=== PATIENT | male | born 1985 | race Two or more races ===

== ENCOUNTER 2017-03-06 19:40 | Emergency (ER) | payer SELFPAY ==
[2017-03-06] MEDS ORDERED: OXYCODONE-ACETAMINOPHEN 5-325 MG TABLET PO ONE (21:22)
[2017-03-06] MEDS ORDERED: PROMETHAZINE HCL 25 MG TABLET PO ONE (21:22)
--- NOTE | 2017-03-06 21:39 | ER Document Report ---
ED Medical Screen (RME) - General Chief Complaint: Epigastric Pain Stated Complaint: ABDOMINAL PAIN Time Seen by Provider: 03/06/17 21:19 Notes: 31-year-old male that comes emergency department for chief complaint of pain in his upper abdomen since 7 PM, pain is very sharp, mainly in the right abdomen and radiates around to his right back. He reports nausea, denies vomiting. He denies history of the same. He denies any daily medications. Only past medical history is laparoscopic procedure for a benign tumor removal according to the patient. TRAVEL OUTSIDE OF THE [place] IN LAST 30 DAYS: No - Related Data Allergies/Adverse Reactions: No Known Allergies Allergy (Verified 03/06/17 20:45) Past Medical History Renal/ Medical History: Denies: Hx Peritoneal Dialysis Past Surgical History: Reports: Hx Orthopedic Surgery - ACL surgery; - Immunizations Hx Diphtheria, Pertussis, Tetanus Vaccination: Yes Physical Exam - Vital signs Vitals: Temp Pulse Resp BP Pulse Ox 98.0 F 82 18 161/94 H 99 03/06/17 20:45 03/06/17 20:45 03/06/17 20:45 03/06/17 20:45 03/06/17 20:45 - General General appearance: Anxious In distress: Moderate - Patient is obviously in pain - Abdominal Tenderness: Tender - Tender in the right upper quadrant and epigastric area only , otherwise very benign abdomen, Boston's sign - Positive Boston sign Course - Vital Signs Vital signs: Temp Pulse Resp BP Pulse Ox 98.0 F 82 18 161/94 H 99 03/06/17 20:45 03/06/17 20:45 03/06/17 20:45 03/06/17 20:45 03/06/17 20:45
[2017-03-06 21:55] LABS: ABSOLUTE BASOPHILS # (AUTO) 0.1 10^3/uL (0.0-0.2); ABSOLUTE EOSINOPHILS # (AUTO) 0.2 10^3/uL (0.0-0.6); ABSOLUTE LYMPHOCYTES (AUTO) 2.2 10^3/uL (0.5-4.7); ABSOLUTE MONOCYTES (AUTO) 0.5 10^3/uL (0.1-1.4); ABSOLUTE NEUT (AUTO) 6.5 10^3/uL (1.7-8.2); BASOPHILS % (AUTO) 0.7 % (0-2); EOSINOPHILS % (AUTO) 2.6 % (0-6); HEMATOCRIT 50.2 % (37.9-51.0); HEMOGLOBIN 16.5 g/dL (13.5-17.0); HGB HCT DIFFERENCE -0.7; LYMPHOCYTES % (AUTO) 23.2 % (13-45); MEAN CORPUSCULAR HEMOGLOBIN 30.9 pg (27.0-33.4); MEAN CORPUSCULAR HGB CONC 32.9 g/dL (32.0-36.0); MEAN CORPUSCULAR VOLUME 94 fl (80-97); MONOCYTES % (AUTO) 5.4 % (3-13); RED BLOOD COUNT 5.35 10^6/uL (4.35-5.55); RED CELL DISTRIBUTION WIDTH 13.5 % (11.5-14.0); SEGMENTED NEUTROPHILS % (AUTO) 68.1 % (42-78); WHITE BLOOD COUNT 9.5 10^3/uL (4.0-10.5)
[2017-03-06 22:05] LABS: APPEARANCE,URINE CLEAR; BILIRUBIN,URINE NEGATIVE (NEGATIVE); GLUCOSE, URINE NEGATIVE (NEGATIVE); KETONES,URINE NEGATIVE (NEGATIVE); LEUKOCYTE ESTERASE,URINE SMALL (NEGATIVE); NITRITE,URINE NEGATIVE (NEGATIVE); PROTEIN,URINE NEGATIVE (NEGATIVE); URINE SPECIFIC GRAVITY 1.009; UROBILINOGEN,URINE NEGATIVE mg/dL (<2.0)
[2017-03-06 22:13] LABS: ALANINE AMINOTRANSFERASE 60 U/L (21-72); ALBUMIN 4.7 g/dL (3.5-5.0); ALKALINE PHOSPHATASE 96 U/L (38-126); ANION GAP 11 (5-19); ASPARTATE AMINO TRANSFERASE 44 U/L (17-59); BILIRUBIN,DIRECT 0.4 mg/dL (0.0-0.4); BILIRUBIN,TOTAL 0.5 mg/dL (0.2-1.3); BLOOD UREA NITROGEN 16 mg/dL (7-20); CARBON DIOXIDE 26 mmol/L (22-30); CHLORIDE 100 mmol/L (98-107); CREATININE RESULT 0.83 mg/dL (0.52-1.25); GLUCOSE 118 mg/dL (75-110); LIPASE 345.2 U/L (23-300); POTASSIUM 4.1 mmol/L (3.6-5.0); SODIUM 137.4 mmol/L (137-145); TOTAL PROTEIN 7.5 g/dL (6.3-8.2)
[2017-03-07] MEDS ORDERED: HYDROCODONE/ACETAMINOPHEN 5-325 MG 6 TAB/DSPK PO PRN (00:45)
--- NOTE | 2017-03-07 00:48 | ER Document Report ---
ED GI/ - General Chief Complaint: Epigastric Pain Stated Complaint: ABDOMINAL PAIN Time Seen by Provider: 03/06/17 21:19 Mode of Arrival: Ambulatory Information source: Patient TRAVEL OUTSIDE OF THE [place] IN LAST 30 DAYS: No - HPI Patient complains to provider of: Abdominal pain Timing/Duration: Sudden Quality of pain: Sharp, Stabbing Severity at maximum: Moderate Severity in ED: Almost gone Location: Epigastric, RUQ Associated symptoms: Nausea Exacerbated by: Denies Relieved by: Denies Similar symptoms previously: Yes Recently seen / treated by doctor: No Notes: 03/07/17 02:41 Patient is a 31-year-old male who presents to the emergency room complaining of upper abdominal pain with nausea that started earlier today, he had similar pain a couple days ago and sometime last year, which he did not seek out medical care for, he denies any fever, no vomiting or diarrhea, he is a every other day drinker, 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, no other surgeries - Related Data Allergies/Adverse Reactions: No Known Allergies Allergy (Verified 03/06/17 20:45) Past Medical History - General Information source: Patient - Social History Smoking Status: Never Smoker Frequency of alcohol use: Every other day Family History: Reviewed & Not Pertinent Patient has suicidal ideation: No Patient has homicidal ideation: No Renal/ Medical History: Denies: Hx Peritoneal Dialysis Past Surgical History: Reports: Hx Orthopedic Surgery - ACL surgery; - Immunizations Hx Diphtheria, Pertussis, Tetanus Vaccination: Yes Review of Systems - Review of Systems Constitutional: No symptoms reported EENT: No symptoms reported Cardiovascular: No symptoms reported Respiratory: No symptoms reported Gastrointestinal: See HPI Genitourinary: No symptoms reported Male Genitourinary: No symptoms reported Musculoskeletal: No symptoms reported Skin: No symptoms reported Hematologic/Lymphatic: No symptoms reported Neurological/Psychological: No symptoms reported -: Yes All other systems reviewed and negative Physical Exam - Vital signs Vitals: Temp Pulse Resp BP Pulse Ox 98.0 F 82 18 161/94 H 99 03/06/17 20:45 03/06/17 20:45 03/06/17 20:45 03/06/17 20:45 03/06/17 20:45 Interpretation: Normal - General General appearance: Appears well, Alert - HEENT Head: Normocephalic, Atraumatic Eyes: Normal Pupils: PERRL - Respiratory Respiratory status: No respiratory distress Chest status: Nontender Breath sounds: Normal Chest palpation: Normal - Cardiovascular Rhythm: Regular Heart sounds: Normal auscultation Murmur: No - Abdominal Inspection: Normal Distension: No distension Bowel sounds: Normal Tenderness: Nontender Organomegaly: No organomegaly - Back Back: Normal, Nontender - Extremities General upper extremity: Normal inspection, Nontender, Normal color, Normal ROM , Normal temperature General lower extremity: Normal inspection, Nontender, Normal color, Normal ROM , Normal temperature, Normal weight bearing. No: Shaniqua's sign - Neurological Neuro grossly intact: Yes Cognition: Normal Orientation: AAOx4 [place] Coma Scale Eye Opening: Spontaneous Hector Coma Scale Verbal: Oriented [place] Coma Scale Motor: Obeys Commands [place] Coma Scale Total: 15 Speech: Normal Motor strength normal: LUE, RUE, LLE, RLE Sensory: Normal - Psychological Associated symptoms: Normal affect, Normal mood - Skin Skin Temperature: Warm Skin Moisture: Dry Skin Color: Normal Course - Re-evaluation Re-evalutation: 03/07/17 02:42 Physical exam findings unremarkable, patient reports his pain is resolved at time of my evaluation, lab and imaging findings were discussed with patient at bedside, lab findings are unremarkable, ultrasound shows evidence of gallstones and sludge, patient was provided with pain medication, dietary counseling was provided as well as information for follow-up with surgery, he was advised to follow-up in the next 2-3 days for reevaluation or return if symptoms worsen, patient acknowledges understanding and agreement with this plan - Vital Signs Vital signs: Temp Pulse Resp BP Pulse Ox 98.7 F 78 16 145/99 H 99 03/07/17 01:05 03/07/17 01:05 03/07/17 01:05 03/07/17 01:05 03/07/17 01:05 - Laboratory Result Diagrams: 03/06/17 21:35 03/06/17 21:35 Laboratory results interpreted by me: 03/06/17 03/06/17 21:35 21:35 Glucose 118 H Lipase 345.2 H Urine Blood SMALL H Ur Leukocyte Esterase SMALL H - Diagnostic Test Radiology reviewed: Image reviewed, Reports reviewed Discharge - Discharge Clinical Impression: Abdominal pain Qualifiers: Abdominal location: right upper quadrant Qualified Code(s): R10.11 - Right upper quadrant pain Gallstone Qualifiers: Cholecystitis presence: without cholecystitis Biliary obstruction: without biliary obstruction Qualified Code(s): K80.20 - Calculus of gallbladder without cholecystitis without obstruction Condition: Stable Disposition: HOME, SELF-CARE Instructions: Abdominal Pain ([facility]), Gallbladder Disease ([facility]), Oral Narcotic Medication ([facility]), Low-Fat Diet ([facility]) Additional Instructions: Follow up with your primary care provider and a surgeon in one to 2 days. Return to the emergency room immediately if symptoms worsen or any additional concerns. Prescriptions: Hydrocodone/Acetaminophen [Hydrocodon-Acetaminophen 5-325] 1 each PO Q6 #20 tablet
--- NOTE | 2017-03-07 00:55 | RADIOLOGY REPORT (SQ) ---
EXAM DESCRIPTION: U/S ABDOMEN LIMITED W/O DOP COMPLETED DATE/TIME: 03/07/2017 12:29 am REASON FOR STUDY: RUQ and epigastric pain, nausea COMPARISON: None. TECHNIQUE: Dynamic and static grayscale images acquired of the abdomen and recorded on PACS. Additio nal selected color Doppler and spectral images recorded. LIMITATIONS: None. FINDINGS: PANCREAS: No masses. Visualized pancreatic duct normal caliber. LIVER: No masses. Echotexture normal. LIVER VASCULATURE: Normal directional flow of the main portal vein and hepatic veins. GALLBLADDER: Gallstones measure up to 2.4 cm. Sludge. ULTRASOUND-DETECTED CARUSO'S SIGN: Negative. INTRAHEPATIC DUCTS AND COMMON DUCT: 0.5 cm diameter CBD and intrahepatic ducts normal caliber. No faith ling defects. INFERIOR VENA CAVA: Normal flow. AORTA: No aneurysm. Limited visualization. RIGHT KIDNEY: Normal size. Normal echogenicity. No solid or suspicious masses. No hydronephrosis. No calcifications. PERITONEAL AND RIGHT PLEURAL SPACE: No ascites or effusions. OTHER: No other significant findings. IMPRESSION: Cholelithiasis. TECHNICAL DOCUMENTATION: JOB ID: [id number] [employer]- All Rights Reserved
[2017-03-07 01:16] VITALS: BP 145/99
== END 2017-03-07 01:05 | disposition home or self-care (01) ==
LOC: EDSEX 19:40 → ER 19:40
DX: K80.20 Calculus of gallbladder without cholecystitis without obstruction (principal); R10.11 Right upper quadrant pain; R10.13 Epigastric pain; R11.0 Nausea
CPT/HCPCS: 36415; 76705; 80053; 81001; 83690; 85025; 99284

== ENCOUNTER 2017-04-01 21:00 | Emergency (ER) | payer SELFPAY ==
[2017-04-01 21:10] VITALS: BP 158/95
== END 2017-04-01 23:50 | disposition left against medical advice (07) ==
LOC: ER 21:00
DX: Z53.9 Procedure and treatment not carried out, unspecified reason (principal); R10.9 Unspecified abdominal pain

== ENCOUNTER 2017-04-02 03:20 | Inpatient (IN) | payer SELFPAY ==
[2017-04-02 06:55] LABS: ABSOLUTE EOSINOPHILS # (AUTO) 0.1 10^3/uL (0.0-0.6); ABSOLUTE MONOCYTES (AUTO) 0.8 10^3/uL (0.1-1.4); ABSOLUTE NEUT (AUTO) 8.8 10^3/uL (1.7-8.2); BASOPHILS % (AUTO) 0.2 % (0-2); EOSINOPHILS % (AUTO) 1.1 % (0-6); HEMATOCRIT 48.3 % (37.9-51.0); HEMOGLOBIN 15.9 g/dL (13.5-17.0); HGB HCT DIFFERENCE -0.6; LYMPHOCYTES % (AUTO) 9.3 % (13-45); MEAN CORPUSCULAR HEMOGLOBIN 30.8 pg (27.0-33.4); MEAN CORPUSCULAR HGB CONC 32.9 g/dL (32.0-36.0); MEAN CORPUSCULAR VOLUME 94 fl (80-97); MONOCYTES % (AUTO) 7.5 % (3-13); RED BLOOD COUNT 5.17 10^6/uL (4.35-5.55); RED CELL DISTRIBUTION WIDTH 13.1 % (11.5-14.0); SEGMENTED NEUTROPHILS % (AUTO) 81.9 % (42-78); WHITE BLOOD COUNT 10.8 10^3/uL (4.0-10.5)
[2017-04-02 07:08] LABS: ALANINE AMINOTRANSFERASE 43 U/L (21-72); ALBUMIN 4.7 g/dL (3.5-5.0); ALKALINE PHOSPHATASE 85 U/L (38-126); ANION GAP 13 (5-19); ASPARTATE AMINO TRANSFERASE 47 U/L (17-59); BILIRUBIN,DIRECT 0.4 mg/dL (0.0-0.4); BILIRUBIN,TOTAL 0.8 mg/dL (0.2-1.3); BLOOD UREA NITROGEN 7 mg/dL (7-20); CALCIUM 9.4 mg/dL (8.4-10.2); CARBON DIOXIDE 27 mmol/L (22-30); CHLORIDE 97 mmol/L (98-107); CREATININE RESULT 0.78 mg/dL (0.52-1.25); GLUCOSE 89 mg/dL (75-110); LIPASE 84.7 U/L (23-300); POTASSIUM 3.7 mmol/L (3.6-5.0); SODIUM 137.1 mmol/L (137-145)
[2017-04-02 07:20] LABS: APPEARANCE,URINE CLEAR; BILIRUBIN,URINE NEGATIVE (NEGATIVE); GLUCOSE, URINE 150 mg/dL (NEGATIVE); KETONES,URINE 20 mg/dL (NEGATIVE); LEUKOCYTE ESTERASE,URINE NEGATIVE (NEGATIVE); NITRITE,URINE NEGATIVE (NEGATIVE); PROTEIN,URINE NEGATIVE (NEGATIVE); URINE SPECIFIC GRAVITY 1.011; UROBILINOGEN,URINE NEGATIVE mg/dL (<2.0)
--- NOTE | 2017-04-02 07:32 | RADIOLOGY REPORT (SQ) ---
EXAM DESCRIPTION: U/S ABDOMEN LIMITED W/O DOP COMPLETED DATE/TIME: 04/02/2017 7:17 am REASON FOR STUDY: RUQ pain COMPARISON: 5..17 TECHNIQUE: Dynamic and static grayscale images acquired of the abdomen and recorded on PACS. Additio nal selected color Doppler and spectral images recorded. LIMITATIONS: None. FINDINGS: PANCREAS: No masses. Visualized pancreatic duct normal caliber. LIVER: No masses. Mild hepatic steatosis. LIVER VASCULATURE: Normal directional flow of the main portal vein and hepatic veins. GALLBLADDER: Mobile gallstone measuring 2.3 cm. Non mobile gallstone of the gallbladder neck measure s 2.0 cm. 0.6 cm gallbladder wall thickness. ULTRASOUND-DETECTED BOSTON'S SIGN: Positive. INTRAHEPATIC DUCTS AND COMMON DUCT: 0.8 cm diameter CBD. Intrahepatic ducts normal caliber. No fill ing defects. INFERIOR VENA CAVA: Normal flow. AORTA: No aneurysm. RIGHT KIDNEY: Normal size. Normal echogenicity. No solid or suspicious masses. No hydronephrosis. No calcifications. PERITONEAL AND RIGHT PLEURAL SPACE: No ascites or effusions. OTHER: No other significant findings. IMPRESSION: Cholelithiasis includes a non mobile gallbladder neck stone, gallbladder wall thickening , positive sonographic Boston's test, and 0.8 cm diameter common duct dilation. Differential diagnos is includes acute cholecystitis and biliary colic. TECHNICAL DOCUMENTATION: JOB ID: [id number]- All Rights Reserved
--- NOTE | 2017-04-02 07:48 | ER Document Report ---
ED General - General Chief Complaint: Abdominal Pain Stated Complaint: ABDOMINAL PAIN Time Seen by Provider: 04/02/17 06:28 Mode of Arrival: Ambulatory Information source: Patient Notes: 31-year-old male presents with complaints of right upper quadrant abdominal pain of the past few weeks that worsened since last night. Patient denies any fevers admits to nausea and vomiting TRAVEL OUTSIDE OF THE [place] IN LAST 30 DAYS: No - HPI Onset: Yesterday Onset/Duration: Sudden Quality of pain: Pressure Severity: Mild Pain Level: 1 Associated symptoms: Nausea, Other Exacerbated by: Food Relieved by: Denies Similar symptoms previously: Yes Recently seen / treated by doctor: Yes - Related Data Allergies/Adverse Reactions: No Known Allergies Allergy (Verified 03/06/17 20:45) Past Medical History - Social History Smoking Status: Never Smoker Cigarette use (# per day): No Chew tobacco use (# tins/day): No Smoking Education Provided: No Family History: Reviewed & Not Pertinent Patient has suicidal ideation: No Patient has homicidal ideation: No Renal/ Medical History: Denies: Hx Peritoneal Dialysis Past Surgical History: Reports: Hx Orthopedic Surgery - ACL surgery; - Immunizations Hx Diphtheria, Pertussis, Tetanus Vaccination: Yes Review of Systems - Review of Systems Notes: REVIEW OF SYSTEMS: CONSTITUTIONAL : Denies fever, chills, or sweats. Denies recent illness. EENT: Denies eye, ear, throat, or mouth pain or symptoms. Denies nasal or sinus congestion or discharge. Denies throat, tongue, or mouth swelling or difficulty swallowing. CARDIOVASCULAR: Denies chest pain. Denies palpitations or racing or irregular heart beat. Denies ankle edema. RESPIRATORY: Denies cough, cold, or chest congestion. Denies shortness of breath, difficulty breathing, or wheezing. GASTROINTESTINAL: right upper quadrant abdominal pain GENITOURINARY: Denies difficulty urinating, painful urination, burning, frequency, blood in urine, or discharge. MUSCULOSKELETAL: Denies back or neck pain or stiffness. Denies joint pain or swelling. SKIN: Denies rash, lesions or sores. HEMATOLOGIC : Denies easy bruising or bleeding. LYMPHATIC: Denies swollen, enlarged glands. NEUROLOGICAL: Denies confusion or altered mental status. Denies passing out or loss of consciousness. Denies dizziness or lightheadedness. Denies headache. Denies weakness or paralysis or loss of use of either side. Denies problems with gait or speech. Denies sensory loss, numbness, or tingling. Denies seizures. PSYCHIATRIC: Denies anxiety or stress. Denies depression, suicidal ideation, or homicidal ideation. ALL OTHER SYSTEMS REVIEWED AND NEGATIVE. Dictation was performed using [employer] voice recognition software PHYSICAL EXAMINATION: GENERAL: Well-appearing, well-nourished and in no acute distress. HEAD: Atraumatic, normocephalic. EYES: Pupils equal round and reactive to light, extraocular movements intact, sclera anicteric, conjunctiva are normal. ENT: Nares patent, oropharynx clear without exudates. Moist mucous membranes. NECK: Normal range of motion, supple without lymphadenopathy LUNGS: Breath sounds clear to auscultation bilaterally and equal. No wheezes rales or rhonchi. HEART: Regular rate and rhythm without murmurs ABDOMEN: Soft, positive Boston sign Musculoskeletal: Normal range of motion, no pitting or edema. No cyanosis. NEUROLOGICAL: Cranial nerves grossly intact. Normal speech, normal gait. Normal sensory, motor exams PSYCH: Normal mood, normal affect. SKIN: Warm, Dry, normal turgor, no rashes or lesions noted. Physical Exam - Vital signs Vitals: Temp Pulse Resp BP Pulse Ox 98.2 F 70 18 163/98 H 99 04/02/17 03:42 04/02/17 03:42 04/02/17 03:42 04/02/17 03:42 04/02/17 03:42 Course - Re-evaluation Re-evalutation: 04/02/17 07:46 pt is very tender in the RUQ, Dr Marroquin pagemae he will admit patient requests antibiotics 04/02/17 08:49 Patient's ultrasound is consistent with cholecystitis, - Vital Signs Vital signs: Temp Pulse Resp BP Pulse Ox 98.0 F 82 20 148/95 H 98 04/02/17 08:30 04/02/17 08:30 04/02/17 08:30 04/02/17 08:30 04/02/17 08:30 - Laboratory Result Diagrams: 04/02/17 06:41 04/02/17 06:41 Laboratory results interpreted by me: 04/02/17 04/02/17 04/02/17 06:41 06:41 06:50 WBC 10.8 H Seg Neutrophils % 81.9 H Lymphocytes % 9.3 L Absolute Neutrophils 8.8 H Chloride 97 L Urine Glucose (UA) 150 H Urine Ketones 20 H Urine Blood SMALL H - Diagnostic Test Radiology reviewed: Image reviewed - U/s consistant with cholecystitis, Reports reviewed - Cholecystitis Discharge - Discharge Clinical Impression: Cholecystitis Abdominal pain Qualifiers: Abdominal location: right upper quadrant Qualified Code(s): R10.11 - Right upper quadrant pain Condition: Stable Disposition: ADMITTED INPATIENT Admitting Provider: Surgicalist Unit Admitted: Surgical Floor
[2017-04-02] MEDS ORDERED: ERTAPENEM SODIUM INJ 1 GM VIAL IV ONE (07:55)
[2017-04-02] MEDS ORDERED: NORMAL SALINE 1000 ML 1,000 ML IV ONE (07:55)
[2017-04-02] MEDS ORDERED: HYDROMORPHONE HCL INJ/PF 2 MG/ML AMPULE IV ONE ×2 (07:55→13:30)
[2017-04-02] MEDS ORDERED: SUCCINYLCHOLINE CHLORIDE INJ 200 MG/10 ML VIAL ONE (09:31)
[2017-04-02] MEDS ORDERED: ONDANSETRON HCL INJ/PF 4 MG/2 ML SDV ONE (09:31)
[2017-04-02] MEDS ORDERED: NEOSTIGMINE METHYLSULFATE 10 MG/10 ML VIAL ONE (09:31)
[2017-04-02] MEDS ORDERED: DEXAMETHASONE SOD PHOSPHATE INJ 4 MG/1 ML VIAL ONE (09:31)
[2017-04-02] MEDS ORDERED: ROCURONIUM BROMIDE INJ 50 MG/5 ML VIAL IV ONE (09:31)
[2017-04-02] MEDS ORDERED: LIDOCAINE 2% INJ-PF (20 MG/ML) 10 ML AMPUL ONE (09:31)
[2017-04-02] MEDS ORDERED: METOCLOPRAMIDE HCL INJ/PF 10 MG/2 ML SDV ONE (09:31)
[2017-04-02] MEDS ORDERED: GLYCOPYRROLATE INJ 0.4 MG/2 ML VIAL ONE (09:31)
--- NOTE | 2017-04-02 09:33 | HISTORY AND PHYSICAL E ---
History and Physical NAME: CHRIS TIRADO : 1985 AGE: 31Y ADMITTED: 04/02/2017 ROOM: ED13 CHIEF COMPLAINT: Right upper quadrant pains. HISTORY OF PRESENT ILLNESS: This is a 31-year-old male, who complained of right upper quadrant pains radiating to the epigastric and the back yesterday morning. This was associated with nausea and vomiting. Denies any fevers, chills. He claims he has been having frequent bowel movements. He described diarrhea each time he eats and this has been ongoing for several years; however, he has not consulted any physician for this. MEDICATION: He takes testosterone injection once a week. SOCIAL HISTORY: Denies smoking, drinking or drug use. REVIEW OF SYSTEMS: As in HPI. Rest of the systems unremarkable. Denies any cough, shortness of breath or chest pain. No visual or hearing problems. No dysuria. No balance problems or easy bruisability. ALLERGIES: None known. FAMILY HISTORY: Strong for diabetes. PHYSICAL EXAMINATION: GENERAL: Well developed, well nourished 31-year-old male, alert and oriented, complaining of right upper quadrant pains. HEENT: Neck is supple, no thyromegaly. LUNGS: Clear. HEART: Regular sinus rhythm. ABDOMEN: Soft with tenderness in the right upper quadrant. EXTREMITIES: No edema. DATA: The patient had an ultrasound of the gallbladder, which showed gallstones and evidence of cholecystitis. IMPRESSION: ACUTE CALCULUS APPENDICITIS. PLAN: 1. The patient started on IV antibiotics. 2. Hydration. 3. For laparoscopic appendectomy today. DICTATING PHYSICIAN: REYNA KIMBROUGH M.D. [id number] PHY#: [id number] ID: [id number] JOB#: [id number] ACCT: [id number] cc:Ivan DA SILVA MD
[2017-04-02] MEDS ORDERED: BUPIVACAINE HCL 0.25 % INJ/PF (2.5 MG/1 ML) 30 ML VIAL ONE (14:56)
[2017-04-02] MEDS ORDERED: HYDROMORPHONE HCL INJ/PF 2 MG/ML AMPULE ONE (15:08)
[2017-04-02] MEDS ORDERED: MIDAZOLAM 2 MG/2 ML INJ ONE (15:08)
[2017-04-02] MEDS ORDERED: IBUPROFEN INJ 800 MG/8 ML VIAL IV ONE (15:09)
[2017-04-02] MEDS ORDERED: ACETAMINOPHEN 100 ML IV ONE (15:09)
[2017-04-02] MEDS ORDERED: EPHEDRINE SULFATE INJ 50 MG/1 ML AMPULE ONE (15:09)
[2017-04-02] MEDS ORDERED: PROPOFOL INJ 200 MG/20 ML VIAL IV ONE (15:09)
[2017-04-02] MEDS ORDERED: BUPIVACAINE HCL 0.25 % INJ/PF (2.5 MG/1 ML) 30 ML VIAL INJ ONE (16:19)
[2017-04-02] MEDS ORDERED: MEPERIDINE HCL/PF INJ 25 MG/1 ML DISP.SYRIN IV PRN (16:28)
[2017-04-02] MEDS ORDERED: PROMETHAZINE HCL INJ 25 MG/1 ML VIAL IV PRN ×2 (16:28)
[2017-04-02] MEDS ORDERED: FENTANYL CITRATE INJ/PF 100 MCG/2 ML AMPUL IV PRN ×3 (16:28)
[2017-04-02] MEDS ORDERED: DIPHENHYDRAMINE HCL 50 MG/ML VIAL IV PRN (16:28)
[2017-04-02] MEDS ORDERED: MORPHINE SULFATE 10 MG/ML INJ IV PRN (16:28)
[2017-04-02] MEDS ORDERED: OXYCODONE-ACETAMINOPHEN 5-325 MG TABLET PO PRN ×2 (16:28)
[2017-04-02] MEDS ORDERED: ONDANSETRON HCL INJ/PF 4 MG/2 ML SDV IV PRN ×2 (16:28→18:31)
[2017-04-02] MEDS ORDERED: NORMAL SALINE 1000 ML 1,000 ML IV PRN (18:32)
[2017-04-02] MEDS: HYDROMORPHONE HCL INJ/PF 2 MG/ML AMPULE IV PRN ×2 (18:50→23:02)
--- NOTE | 2017-04-02 18:58 | OPERATIVE REPORT E ---
Operative Report NAME: CHRIS TIRADO : 1985 AGE: 31Y DATE OF SURGERY: 04/02/2017 ROOM: 436 PREOPERATIVE DIAGNOSIS: Cholelithiasis with acute cholecystitis. POSTOPERATIVE DIAGNOSIS: Cholelithiasis with acute cholecystitis. OPERATION: Laparoscopic cholecystectomy. SURGEON: REYNA KIMBROUGH M.D. ANESTHESIA: General. INDICATION: This is a 31-year-old male who complained of right upper quadrant pains and ultrasound in the ED showed gallstones with cholecystitis. PROCEDURE: After adequate general anesthesia, the patient was placed in supine position and the abdomen prepped and draped in the usual sterile fashion. Appropriate timeout was done. An infraumbilical elliptical incision was made and carried down to the fascia. The fascia was opened and [place] trocar inserted through the fascia into the abdominal cavity. CO2 insufflated through the trocar up to a pressure of 50 mmHg. We added trocars, 11 mm in the xiphoid and two 5 mm in the right upper quadrant were placed under direct visualization. The gallbladder was noted to be thickened and tense. It was subsequently emptied of its bile through a long needle and aspirated about 80 mL of dark bile. Specimens were taken. The gallbladder was subsequently grasped at the fundus and adhesions lysed bluntly with the use of Harmonic mynor. The infundibulum was subsequently grasped and the cystic duct isolated with [place] dissector. The cystic duct was then isolated and clipped with hemoclips. The cystic artery also identified, clipped with hemoclips and then divided with the use of Harmonic mynor. The gallbladder was then taken off the liver bed with some difficulty because of the thickened wall and semi-acute stage of the gallbladder. The gallbladder was completely removed off its liver bed without any spillage. It was then placed in an Endobag and pulled out through the umbilical port. The umbilical fascial defect needed to be enlarged to almost 1 cm to allow removal of the gallbladder. The gallbladder after removal was palpated and he has at least 2 large stones roughly measuring about 1.5 cm in diameter. Next, the liver bed was inspected and no evidence of significant bleeding. There was very slight oozing and this was controlled with placement of Surgicel. Next all the trocars were removed and no evidence of bleeding from along the trocar sites. The fascial defect at the infraumbilical area was closed with 2 [id number] sutures using 0 Vicryl. The subxiphoid fascial defect was closed with single suture using 0 Vicryl. All the skin incisions were closed with running subcuticular 4-0 Vicryl undyed. Dermabond was used as a dressing. Needle, instrument, and sponge counts were all correct. Estimated blood loss about 30 mL. The patient tolerated the procedure well. The patient brought to recovery room in satisfactory condition. DICTATING PHYSICIAN: REYNA KIMBROUGH M.D. [id number] PHY#: [id number] ID: [id number] JOB#: [id number] ACCT: [id number] cc:REYNA KIMBROUGH M.D. >
[2017-04-02] MEDS: OXYCODONE-ACETAMINOPHEN 5-325 MG TABLET PO PRN (20:16)
[2017-04-03] MEDS: OXYCODONE-ACETAMINOPHEN 5-325 MG TABLET PO PRN ×3 (00:13→11:22)
[2017-04-03] MEDS: HYDROMORPHONE HCL INJ/PF 2 MG/ML AMPULE IV PRN ×5 (03:20→23:14)
[2017-04-03] MEDS ORDERED: DOXAZOSIN MESYLATE 2 MG TABLET PO SCH (08:00)
[2017-04-03] MEDS ORDERED: GLYCOPYRROLATE INJ 0.4 MG/2 ML VIAL ONE (08:03)
[2017-04-03] MEDS ORDERED: DEXAMETHASONE SOD PHOSPHATE INJ 4 MG/1 ML VIAL ONE (08:03)
[2017-04-03] MEDS ORDERED: ONDANSETRON HCL INJ/PF 4 MG/2 ML SDV ONE (08:03)
[2017-04-03] MEDS ORDERED: ROCURONIUM BROMIDE INJ 50 MG/5 ML VIAL IV ONE (08:03)
[2017-04-03] MEDS ORDERED: SUCCINYLCHOLINE CHLORIDE INJ 200 MG/10 ML VIAL ONE (08:03)
[2017-04-03] MEDS ORDERED: NEOSTIGMINE METHYLSULFATE 10 MG/10 ML VIAL ONE (08:03)
[2017-04-03] MEDS ORDERED: LIDOCAINE 2% INJ-PF (20 MG/ML) 10 ML AMPUL ONE (08:03)
[2017-04-03] MEDS ORDERED: NORMAL SALINE 1000 ML 1,000 ML IV PRN (15:24)
[2017-04-03] MEDS ORDERED: ONDANSETRON HCL INJ/PF 4 MG/2 ML SDV IV PRN (15:24)
[2017-04-03 17:08] LABS: ABSOLUTE LYMPHOCYTES (AUTO) 0.9 10^3/uL (0.5-4.7); ABSOLUTE MONOCYTES (AUTO) 1.1 10^3/uL (0.1-1.4); ABSOLUTE NEUT (AUTO) 11.1 10^3/uL (1.7-8.2); BASOPHILS % (AUTO) 0.1 % (0-2); HEMATOCRIT 46.2 % (37.9-51.0); HEMOGLOBIN 15.4 g/dL (13.5-17.0); LYMPHOCYTES % (AUTO) 6.9 % (13-45); MEAN CORPUSCULAR HEMOGLOBIN 30.8 pg (27.0-33.4); MEAN CORPUSCULAR HGB CONC 33.3 g/dL (32.0-36.0); MEAN CORPUSCULAR VOLUME 92 fl (80-97); MONOCYTES % (AUTO) 8.2 % (3-13); SEGMENTED NEUTROPHILS % (AUTO) 84.8 % (42-78); WHITE BLOOD COUNT 13.2 10^3/uL (4.0-10.5)
--- NOTE | 2017-04-03 17:08 | PROGRESS NOTE E ---
Progress Note NAME: CHRIS TIRADO : 1985 AGE: 31Y DATE: ROOM: 436 SUBJECTIVE: The patient is now one day status post a laparoscopic cholecystectomy for acute cholecystitis, cholelithiasis by Dr. Marroquin; The patient was originally scheduled to go home today; however, he developed urinary retention. Apparently, a urinary catheter was placed and there was 700 mL of urine drained. This was treated as an I and O. Since then, the patient has had minimal urine output. The patient was retained in the hospital because of progressive tachycardia. The patient is also complaining of abdominal pain and is receiving pain medication. PHYSICAL EXAMINATION: VITAL SIGNS: Temperature 99.8, heart rate 125, blood pressure 137/75. GENERAL: The patient appears to be in distress. He is nearly holding his breath and certainly taking very shallow respirations. ABDOMEN: Examined. There is significant abdominal bruising at the sites of the operative incisions. The abdomen is diffusely tender. EXTREMITIES: Upper and lower extremities were without gross deformity. IMPRESSION: 1. POSTOPERATIVE TACHYCARDIA AND ABDOMINAL PAIN STATUS POST LAPAROSCOPIC CHOLECYSTECTOMY. 2. URINARY RETENTION. We will increase IV fluids and reinsert Sarkar catheter. We will CBC, SMA6 and LFTs then reassess patient. DICTATING PHYSICIAN: JENNIFER GREENE M.D. [id number] PHY#: [id number] ID: [id number] JOB#: [id number] ACCT: [id number] cc: > MTDD
[2017-04-03 17:26] LABS: ALANINE AMINOTRANSFERASE 122 U/L (21-72); ALBUMIN 3.9 g/dL (3.5-5.0); ALKALINE PHOSPHATASE 113 U/L (38-126); ANION GAP 14 (5-19); ASPARTATE AMINO TRANSFERASE 113 U/L (17-59); BILIRUBIN,DIRECT 0.9 mg/dL (0.0-0.4); BILIRUBIN,TOTAL 1.6 mg/dL (0.2-1.3); BLOOD UREA NITROGEN 5 mg/dL (7-20); CALCIUM 9.2 mg/dL (8.4-10.2); CARBON DIOXIDE 25 mmol/L (22-30); CHLORIDE 96 mmol/L (98-107); CREATININE RESULT 0.75 mg/dL (0.52-1.25); GLUCOSE 118 mg/dL (75-110); POTASSIUM 3.7 mmol/L (3.6-5.0); SODIUM 134.9 mmol/L (137-145); TOTAL PROTEIN 6.7 g/dL (6.3-8.2)
[2017-04-03] MEDS ORDERED: BUPIVACAINE HCL 0.25 % INJ/PF (2.5 MG/1 ML) 30 ML VIAL ONE (18:58)
[2017-04-03] MEDS ORDERED: HYDROMORPHONE HCL INJ/PF 2 MG/ML AMPULE ONE (19:02)
[2017-04-03] MEDS ORDERED: MIDAZOLAM 2 MG/2 ML INJ ONE (19:03)
[2017-04-03] MEDS ORDERED: FENTANYL CITRATE INJ/PF 100 MCG/2 ML AMPUL ONE ×2 (19:03)
[2017-04-03] MEDS ORDERED: PROPOFOL INJ 200 MG/20 ML VIAL IV ONE (19:04)
[2017-04-03] MEDS ORDERED: ACETAMINOPHEN 100 ML IV ONE (19:04)
[2017-04-03] MEDS ORDERED: KETAMINE HCL INJ 500 MG/10 ML VIAL ONE (19:24)
[2017-04-03] MEDS ORDERED: EPHEDRINE SULFATE INJ 50 MG/1 ML AMPULE ONE (19:40)
[2017-04-03] MEDS ORDERED: AMPICILLIN SODIUM/SULBACTAM NA 3 GM in NORMAL SALINE 100 ML IV ONE (20:00)
[2017-04-03] MEDS ORDERED: DIPHENHYDRAMINE HCL 50 MG/ML VIAL IV PRN (20:36)
[2017-04-03] MEDS ORDERED: FENTANYL CITRATE INJ/PF 100 MCG/2 ML AMPUL IV PRN ×3 (20:36)
[2017-04-03] MEDS ORDERED: MORPHINE SULFATE 10 MG/ML INJ IV PRN (20:36)
[2017-04-03] MEDS ORDERED: BUPIVACAINE HCL 0.25 % INJ/PF (2.5 MG/1 ML) 30 ML VIAL INJ ONE (20:52)
--- NOTE | 2017-04-03 22:11 | Operative Report ---
Operative Report DATE OF SURGERY: 04/03/17 PREOPERATIVE DIAGNOSIS: Acute abdomen; status post laparoscopic cholecystectomy for acute cholecystitis with cholelithiasis POSTOPERATIVE DIAGNOSIS: Same with bile peritonitis secondary to bile leak presumably from gallbladder fossa OPERATION: 1. Exploratory laparoscopy. 2 washout of peritoneal cavity. 3. Drainage of right upper quadrant SURGEON: JENNIFER CLAROS ANESTHESIA: GA TISSUE REMOVED OR ALTERED: Bile COMPLICATIONS: None ESTIMATED BLOOD LOSS: 75 cc INTRAOPERATIVE FINDINGS: See below PROCEDURE: Indication for operation: The patient was 24 hours status post laparoscopic cholecystectomy for cholecystitis with cholelithiasis by Dr. Kenyon. During the course of the first postoperative day the patient developed abdominal pain tachycardia and urinary retention. Patient received pain medication, but continued to have abdominal pain, shortness of breath. A Sarkar catheter was inserted and approximately 400 cc of urine drained. Repeat laboratory profile showed elevation in white blood cell count, and total bilirubin as well as other LFTs. On physical examination the patient was tachycardic to the 130s, and on abdominal exam had guarding. The patient was felt to have peritonitis, and exploratory laparoscopy versus laparotomy was recommended to the patient as well as the patient's father with whom the above was reviewed. The decision was made in the family and patient were in agreement to proceed with the recommended operation. The patient taken to the operating room where general anesthesia was induced. A second right arm peripheral access was established. The abdomen was exposed, prepped and draped in sterile fashion. Instrumentation was set up for laparoscopic exploration Surgical plan surgical timeout conducted. Findings on the abdominal wall consistent with for port technique for laparoscopic cholecystectomy. There were infraumbilical and epigastric incisions previously used for 10 and 12 port and 2 subcostal small incisions consistent with 5 mm ports. This was consistent with Dr. Calderon operative description reviewed by Dr. Claros We opened the infraumbilical incision with the knife and into the peritoneal cavity bluntly. A 5 mm port was inserted and secured to reduce air leak with towel clips. Similarly the epigastric port site was open and a 5 mm port was inserted into this position. The subcostal incisions were opened and 2 additional 5 mm ports were inserted here. Visualization of the peritoneal cavity using a flexible scope revealed diffuse bile staining tissue. As best we could, we irrigated the peritoneal cavity out primarily focusing on the subhepatic and subdiaphragmatic spaces. Unfortunately by now the patient was developing an ileus, making exposure to the peritoneal cavity somewhat challenging. Nonetheless during this time there was some bleeding from the epigastric port site. To control for this, we removed the 5 mm port and placed a [place] 12 mm Type Trocar. There Was Additional Bleeding from the Adjacent Fascia Likely at the Site of the 5 Mm Trocar Entry Site and so This Was Managed with a Small Surgicel Plug We Now Called Our Attention to the Subhepatic Space and the Gallbladder Fossa. We Are Using at This Time 2 5 Mm fans to Optimize Elevation of the Right Lobe of the Liver, and Gentle Compression on the Viscera Inferiorly. We Suctioned out A Lot Of Bile and Removed the Previously Placed Plugs of Surgicel Installed by . This afforded us excellent visualization of the gallbladder fossa. It was quite raw consistent with the acutely inflamed gallbladder which had been removed yesterday. Photographs were taken. We got down to the more inferior tissue and could see 2 clips placed on the cystic artery stump and 3 clips placed on the cystic duct stump. Photographs were taken. All clips appeared to be in satisfactory position. Photo taken. We began irrigating and suctioning out this area in an attempt to identify exactly where the bile was coming from. Unfortunately all of the tissue was stained and it was difficult to ascertain an exact leak site. I did place a Ray-Marilyn temporarily into the peritoneal cavity and used it to absorb bile and the bile appeared to be coming from the gallbladder fossa. However I could not be 100%, and this was merely a strong inference. We did not see any evidence of succus entericus which might be seen with a small bowel leak however again visualization of duodenum stomach and any of the small intestines was next to impossible laparoscopically. Again because it appeared the bile was coming from the gallbladder fossa, I felt it was appropriate at this time to place drains and let the patient recover. 2 large Sony drains were placed to the sub-costal port sites and placed adjacent to the gallbladder fossa and right lobe of the liver respectively. Drains were secured to the skin with 2-0 Prolene suture At this point we felt the operation was complete. Patient remained hemodynamically stable but tachycardic in the majority of the case. All ports removed were removed, and fascial defect at this xiphoid and umbilical locations were closed with 0 Vicryl suture and the skin incisions closed with interrupted 3-0 Ethilon suture. Quarter percent Marcaine was injected into all of the incision sites. Sterile dressings were applied. Postop procedure well, extubated and taken recovery room in guarded condition.
[2017-04-03 22:22] LABS: HEMOGLOBIN 13.7 g/dL (13.5-17.0); HGB HCT DIFFERENCE -0.9; MEAN CORPUSCULAR HEMOGLOBIN 30.6 pg (27.0-33.4); MEAN CORPUSCULAR HGB CONC 32.6 g/dL (32.0-36.0); MEAN CORPUSCULAR VOLUME 94 fl (80-97); RED BLOOD COUNT 4.48 10^6/uL (4.35-5.55); RED CELL DISTRIBUTION WIDTH 13.3 % (11.5-14.0); WHITE BLOOD COUNT 13.7 10^3/uL (4.0-10.5)
[2017-04-03 22:39] LABS: BAND NEUTROPHILS % (MANUAL) 3 % (3-5); BASOPHILS % (MANUAL) 0 % (0-2); EOSINOPHILS % (MANUAL) 0 % (0-6); LYMPHOCYTES % (MANUAL) 3 % (13-45); TOTAL CELLS COUNTED 100
[2017-04-03 22:41] LABS: RBC MORPHOLOGY COMMENT NORMO-CYTIC/CHROMIC
[2017-04-03 22:42] LABS: ALANINE AMINOTRANSFERASE 137 U/L (21-72); ALBUMIN 3.1 g/dL (3.5-5.0); ALKALINE PHOSPHATASE 88 U/L (38-126); ANION GAP 11 (5-19); ASPARTATE AMINO TRANSFERASE 132 U/L (17-59); BILIRUBIN,DIRECT 0.7 mg/dL (0.0-0.4); BILIRUBIN,TOTAL 1.2 mg/dL (0.2-1.3); BLOOD UREA NITROGEN 5 mg/dL (7-20); CALCIUM 8.1 mg/dL (8.4-10.2); CARBON DIOXIDE 26 mmol/L (22-30); CHLORIDE 100 mmol/L (98-107); CREATININE RESULT 0.71 mg/dL (0.52-1.25); GLUCOSE 137 mg/dL (75-110); MAGNESIUM 1.4 mg/dL (1.6-2.3); PHOSPHORUS 2.1 mg/dL (2.5-4.5); POTASSIUM 3.9 mmol/L (3.6-5.0); SODIUM 137.4 mmol/L (137-145); TOTAL PROTEIN 5.7 g/dL (6.3-8.2)
[2017-04-03] MEDS ORDERED: AMPICILLIN SOD/SULBACTAM 3 GM VIAL IV PRN (22:45)
[2017-04-03] MEDS: RINGERS SOLUTION,LACTATED 1,000 ML IV PRN (23:13)
[2017-04-04] MEDS: AMPICILLIN SODIUM/SULBACTAM NA 3 GM in NORMAL SALINE 100 ML IV SCH ×3 (01:45→17:59)
[2017-04-04] MEDS: HYDROMORPHONE HCL INJ/PF 2 MG/ML AMPULE IV PRN ×5 (03:05→22:00)
[2017-04-04] MEDS: RINGERS SOLUTION,LACTATED 1,000 ML IV PRN ×5 (03:05→23:26)
[2017-04-04 04:53] LABS: ABSOLUTE LYMPHOCYTES (AUTO) 0.7 10^3/uL (0.5-4.7); ABSOLUTE MONOCYTES (AUTO) 0.7 10^3/uL (0.1-1.4); ABSOLUTE NEUT (AUTO) 10.1 10^3/uL (1.7-8.2); BASOPHILS % (AUTO) 0.1 % (0-2); HEMATOCRIT 41.6 % (37.9-51.0); HEMOGLOBIN 13.5 g/dL (13.5-17.0); HGB HCT DIFFERENCE -1.1; MEAN CORPUSCULAR HEMOGLOBIN 30.4 pg (27.0-33.4); MEAN CORPUSCULAR HGB CONC 32.4 g/dL (32.0-36.0); MEAN CORPUSCULAR VOLUME 94 fl (80-97); RED BLOOD COUNT 4.44 10^6/uL (4.35-5.55); RED CELL DISTRIBUTION WIDTH 13.1 % (11.5-14.0); SEGMENTED NEUTROPHILS % (AUTO) 87.9 % (42-78); WHITE BLOOD COUNT 11.5 10^3/uL (4.0-10.5)
[2017-04-04 04:56] LABS: APPEARANCE,URINE CLEAR; BILIRUBIN,URINE NEGATIVE (NEGATIVE); GLUCOSE, URINE NEGATIVE (NEGATIVE); KETONES,URINE 20 mg/dL (NEGATIVE); LEUKOCYTE ESTERASE,URINE NEGATIVE (NEGATIVE); NITRITE,URINE NEGATIVE (NEGATIVE); PROTEIN,URINE NEGATIVE (NEGATIVE); URINE SPECIFIC GRAVITY 1.006; UROBILINOGEN,URINE NEGATIVE mg/dL (<2.0)
[2017-04-04 05:10] LABS: ALANINE AMINOTRANSFERASE 123 U/L (21-72); ALBUMIN 3.1 g/dL (3.5-5.0); ALKALINE PHOSPHATASE 86 U/L (38-126); ANION GAP 11 (5-19); ASPARTATE AMINO TRANSFERASE 122 U/L (17-59); BILIRUBIN,DIRECT 0.6 mg/dL (0.0-0.4); BILIRUBIN,TOTAL 1.1 mg/dL (0.2-1.3); BLOOD UREA NITROGEN 4 mg/dL (7-20); CALCIUM 8.4 mg/dL (8.4-10.2); CARBON DIOXIDE 29 mmol/L (22-30); CHLORIDE 98 mmol/L (98-107); GLUCOSE 111 mg/dL (75-110); SODIUM 137.7 mmol/L (137-145); TOTAL PROTEIN 5.8 g/dL (6.3-8.2)
--- NOTE | 2017-04-04 08:01 | Physician Advisory Note ---
Physician Advisor ProgressNote .: Pursuant to the plan for [facility], I have reviewed the medical record for this patient. Physician Advisor Statement: Beautiful documentation of reasons pt needing to stay in hospital 04/03. HR up to 120s-140s sustained x hrs, clearly unstable vitals. Pt requiring IV Dilaudid 6x on 04/03, Rx'd Unasyn for suspected , & started on LR @250. Appropriate to make Inpt status. CK
[2017-04-04] MEDS: DOXAZOSIN MESYLATE 2 MG TABLET PO SCH (09:47)
--- NOTE | 2017-04-04 11:18 | PROGRESS NOTE E ---
Progress Note NAME: CHRIS TIRADO : 1985 AGE: 31Y DATE: 04/04/2017 ROOM: [facility] SUBJECTIVE: The patient had a laparoscopic evaluation of laparoscopic cholecystectomy done the day before. This was done by Dr. Claros. There is no evidence of active bleeding and he washed out the gallbladder site. There is bile leak coming from the liver bed. Drains were placed. This morning patient's drainage is bilious, roughly about 20 mL from one of the drains. OBJECTIVE: ABDOMEN: His abdomen is soft. VITAL SIGNS: He still somewhat tachycardiac around 110. His temperature is 98.9. LABORATORY: His white count decreased to 11.5 from 13.5 yesterday. His LFTs remain essentially the same with AST of 122 from 133 yesterday and ALT 123 from 137 yesterday. His direct bilirubin decreased to 0.6 from 0.7 yesterday and total bilirubin of 1.1 this morning from 1.2 yesterday. PLAN: Patient appears to be clinically improved but I think it is important to make sure that there is no continued leak from the liver bed. If patient does have a leak, then may need GI evaluation for possible biliary stent placement. Patient is going to have a HIDA scan today to make sure there is no leak. In the meantime, continue on IV antibiotics and hydration. DICTATING PHYSICIAN: REYNA KIMBROUGH M.D. [id number] PHY#: [id number] ID: [id number] JOB#: [id number] ACCT: [id number] cc: >
--- NOTE | 2017-04-04 13:39 | RADIOLOGY REPORT (SQ) ---
EXAM DESCRIPTION: NM HIDA SCAN COMPLETED DATE/TIME: 04/04/2017 1:12 pm REASON FOR STUDY: BILE LEAK COMPARISON: Right upper quadrant ultrasound 04/02/2017 CT abdomen pelvis 01/31/2012 RADIONUCLIDE AND DOSE: DOSAGE RADIONUCLIDE: 5.5 millicuries Tc99m Mebrofenin. DOSAGE MORPHINE: Not required. The route of agent administration: Intravenous TECHNIQUE: Serial imaging right upper quadrant up to 60 minutes following injection of radionuclide. Patient imaged AP and Right Lateral. LIMITATIONS: None. FINDINGS: LIVER: Normal visualization without areas of photopenia. INTRA-HEPATIC BILE DUCTS: Temporal visualization normal. No dilatation. COMMON BILE DUCT: Normal without dilatation or delayed visualization. GALLBLADDER: Surgically absent. By 25 minutes, activity is identified in the right upper quadrant dr ain tubing, suggesting a small bile leak. No focal accumulation in the gallbladder fossa is identifi ed OTHER: Activity is present in the small bowel by 12 minutes IMPRESSION: Normal clearance of agent from the liver. Hepatobiliary agent activity in the right upper quadrant drainage catheter tubing related to a small bile leak. No focal accumulation in the gallbladder fossa is identified TECHNICAL DOCUMENTATION: JOB ID: [id number]- All Rights Reserved
[2017-04-05] MEDS: AMPICILLIN SODIUM/SULBACTAM NA 3 GM in NORMAL SALINE 100 ML IV SCH ×3 (02:07→20:24)
[2017-04-05] MEDS: HYDROMORPHONE HCL INJ/PF 2 MG/ML AMPULE IV PRN ×5 (02:08→20:21)
[2017-04-05] MEDS: RINGERS SOLUTION,LACTATED 1,000 ML IV PRN ×3 (03:24→13:21)
[2017-04-05 10:12] LABS: ABSOLUTE EOSINOPHILS # (AUTO) 0.1 10^3/uL (0.0-0.6); ABSOLUTE MONOCYTES (AUTO) 0.6 10^3/uL (0.1-1.4); ABSOLUTE NEUT (AUTO) 7.7 10^3/uL (1.7-8.2); BASOPHILS % (AUTO) 0.3 % (0-2); EOSINOPHILS % (AUTO) 1.3 % (0-6); HEMATOCRIT 38.9 % (37.9-51.0); HGB HCT DIFFERENCE 0.1; LYMPHOCYTES % (AUTO) 10.9 % (13-45); MEAN CORPUSCULAR HEMOGLOBIN 30.8 pg (27.0-33.4); MEAN CORPUSCULAR HGB CONC 33.4 g/dL (32.0-36.0); MEAN CORPUSCULAR VOLUME 92 fl (80-97); MONOCYTES % (AUTO) 5.9 % (3-13); RED BLOOD COUNT 4.23 10^6/uL (4.35-5.55); RED CELL DISTRIBUTION WIDTH 12.9 % (11.5-14.0); SEGMENTED NEUTROPHILS % (AUTO) 81.6 % (42-78); WHITE BLOOD COUNT 9.4 10^3/uL (4.0-10.5)
[2017-04-05 10:28] LABS: ALANINE AMINOTRANSFERASE 80 U/L (21-72); ALKALINE PHOSPHATASE 76 U/L (38-126); ANION GAP 12 (5-19); ASPARTATE AMINO TRANSFERASE 46 U/L (17-59); BILIRUBIN,DIRECT 0.5 mg/dL (0.0-0.4); BILIRUBIN,TOTAL 0.9 mg/dL (0.2-1.3); BLOOD UREA NITROGEN 4 mg/dL (7-20); CALCIUM 8.3 mg/dL (8.4-10.2); CARBON DIOXIDE 27 mmol/L (22-30); CHLORIDE 98 mmol/L (98-107); CREATININE RESULT 0.64 mg/dL (0.52-1.25); GLUCOSE 80 mg/dL (75-110); LIPASE 34.9 U/L (23-300); POTASSIUM 3.4 mmol/L (3.6-5.0); SODIUM 136.6 mmol/L (137-145); TOTAL PROTEIN 5.7 g/dL (6.3-8.2)
[2017-04-05] MEDS: DOXAZOSIN MESYLATE 2 MG TABLET PO SCH (11:26)
--- NOTE | 2017-04-05 12:58 | PROGRESS NOTE E ---
Progress Note NAME: CHRIS TIRADO : 1985 AGE: 31Y DATE: 04/05/2017 ROOM: [facility] SUBJECTIVE: Patient had a HIDA scan yesterday, which showed a small leak, but the area of the gallbladder fossa appears to be clear. I have put a consult in to Dr. Tadeo, who, from what the nurse told me, will possibly do an ERCP today. OBJECTIVE: His drainage from the 2 drains: Drain 1 is about 200 mL and drain 2 is about 100 mL. Drain 1 actually has some bilious drainage. His abdomen remained less tender, just has tenderness along the right upper quadrant, but the rest of the abdomen is nontender. DIAGNOSTIC DATA: His lab showed his white count has gone down to 9.4 from 11.4, yesterday; hemoglobin stable at 13.0. His LFT's have improved and lipase is normal. His AST is normal at 46 and ALT of 80, alkaline phos has been normal at 76. PLAN: The plan is to continue with IV antibiotic therapy. *------* I ordered clear liquids, but since Dr. Tadeo is planning to do an ERCP, will keep him n.p.o. for now. DICTATING PHYSICIAN: REYNA KIMBROUGH M.D. [id number] PHY#: [id number] ID: [id number] JOB#: [id number] ACCT: [id number] cc: >
--- NOTE | 2017-04-05 16:16 | Physician Advisory Note ---
Physician Advisor ProgressNote .: Pursuant to the plan for [facility], I have reviewed the medical record for this patient. Physician Advisor Statement: Attending, please give list of dx.s in each note. Please consider also documentin. "Acute hyponatremia, mild, suspect due to____" 2. "possible protein-calorie malnutrition [state mild, mod, or severe] with BMI 30, BUN 4, Cr 0.64, ____[?wt loss, ?appetite loss, ]" [if possible, give specifics on intake, wt loss, loss of SQ fat & muscle mass, diminished hand pump servicer helper strength, & clinical importance such as (A) nutritional assessment ordered, (B) modified diet or supplements ordered, (C) additional labs ordered, (D) prolonged wound healing time, (E) delayed infxn clearance] Thanks! CK
[2017-04-05] MEDS ORDERED: NALOXONE HCL INJ/PF 0.4 MG/1 ML SDV ONE (17:11)
[2017-04-05] MEDS ORDERED: FLUMAZENIL INJ 0.5 MG/5 ML VIAL IV ONE (17:12)
[2017-04-05] MEDS ORDERED: EPINEPHRINE INJ 1 MG/10 ML DISP.SYRIN ONE (17:12)
[2017-04-05] MEDS ORDERED: GLUCAGON,HUMAN RECOMB 1 MG INJ ONE (17:12)
[2017-04-05] MEDS ORDERED: FENTANYL CITRATE INJ/PF 100 MCG/2 ML AMPUL ONE (17:12)
[2017-04-05] MEDS: MIDAZOLAM 2 MG/2 ML INJ ONE ×3 (18:38→18:45)
--- NOTE | 2017-04-05 18:38 | PDOC CONSULTATION ---
Consultation Consult Date: 04/05/17 History of Present Illness Admission Date/PCP: 04/04/17 09:00 History of Present Illness: CHRIS TIRADO is a 31 year old male who was admitted on 04/02/2017 with acute cholecystitis. He had a laparoscopic cholecystectomy on 04/02/2017 but he was taken back to the OR for laparoscopy on 04/03/2017. There was bile peritonitis secondary to a biliary leak and this was also confirmed on a subsequent HIDA scan. He continues to drain from the MARIAELENA drains. His LFTs are abnormal and he has not been passing gas. Past Medical History Neurological Medical History: Denies: Seizures Past Surgical History Past Surgical History: Reports: Orthopedic Surgery - ACL surgery; Social History Smoking Status: Current Every Day Smoker Frequency of Alcohol Use: Social Hx Recreational Drug Use: No Drugs: None Hx Prescription Drug Abuse: No - Advance Directive Resuscitation Status: Full Code Family History Family History: Reviewed & Not Pertinent Parental Family History Reviewed: No Children Family History Reviewed: NA Sibling(s) Family History Reviewed.: NA Medication/Allergy Home Medications: Testosterone Cypionate [Depo-Testosterone] 100 mg IM WE@1000 04/02/17 Allergies/Adverse Reactions: No Known Allergies Allergy (Verified 03/06/17 20:45) Review of Systems All systems: reviewed and no additional remarkable complaints except as stated Physical Exam Vital Signs: Temp Pulse Resp BP Pulse Ox 98.0 F 93 14 153/88 H 99 04/05/17 16:00 04/05/17 18:20 04/05/17 18:20 04/05/17 18:20 04/05/17 18:20 Intake & Output 04/04/17 04/05/17 04/06/17 06:59 06:59 06:59 Intake Total 4618 Output Total 4080 3135 Balance 538 -3135 Weight 72.8 kg Exam: General: Patient is alert and looks well. HEENT: There is no pallor or jaundice. PERRLA. Oropharynx normal Respiratory: No chest deformity. No respiratory distress. Chest wall palpitation was unremarkable. Breath sounds were normal Cardiovascular: Heart sounds 1 and 2 normal with no murmurs. Abdominal: Not distended. Soft and nontender. Liver and spleen not palpable. No ascites demonstrated. Bowel sounds were hypoactive. He has 2 MARIAELENA drains Extremities: No edema Neurological: Alert and oriented x4. Grossly nonfocal. Normal speech Skin: No significant rash Psychological: Normal affect Results Laboratory Results: 04/05/17 09:59 04/05/17 09:59 04/05/17 04/05/17 09:59 09:59 WBC 9.4 RBC 4.23 L Hgb 13.0 L Hct 38.9 MCV 92 MCH 30.8 MCHC 33.4 RDW 12.9 Plt Count 235 Seg Neutrophils % 81.6 H Lymphocytes % 10.9 L Monocytes % 5.9 Eosinophils % 1.3 Basophils % 0.3 Absolute Neutrophils 7.7 Absolute Lymphocytes 1.0 Absolute Monocytes 0.6 Absolute Eosinophils 0.1 Absolute Basophils 0.0 Sodium 136.6 L Potassium 3.4 L Chloride 98 Carbon Dioxide 27 Anion Gap 12 BUN 4 L Creatinine 0.64 Est GFR ( Amer) > 60 Est GFR (Non-Af Amer) > 60 Glucose 80 Calcium 8.3 L Total Bilirubin 0.9 AST 46 ALT 80 H Alkaline Phosphatase 76 Total Protein 5.7 L Albumin 3.0 L Lipase 34.9 Impressions: Abdomen Ultrasound 04/02/17 06:29 IMPRESSION: Cholelithiasis includes a non mobile gallbladder neck stone, gallbladder wall thickening, positive sonographic Boston's test, and 0.8 cm diameter common duct dilation. Differential diagnosis includes acute cholecystitis and biliary colic. Hepatobiliary Scan Nuclear Medicine 04/04/17 00:00 IMPRESSION: Normal clearance of agent from the liver. Hepatobiliary agent activity in the right upper quadrant drainage catheter tubing related to a small bile leak. No focal accumulation in the gallbladder fossa is identified Assessment & Plan - Diagnosis (1) Bile leak, postoperative Is this a current diagnosis for this admission?: YesPlan: He has evidence of a postcholecystectomy bile leak. The need for an ERCP with then placement was explained to the patient and he is in agreement. (2) Disorder of biliary tract Is this a current diagnosis for this admission?: Yes (3) Abnormal LFTs Is this a current diagnosis for this admission?: Yes
--- NOTE | 2017-04-05 19:06 | Operative Report ---
Operative Report DATE OF SURGERY: 04/05/17 Operative Report: Pre-op diagnosis: Postcholecystectomy bile leak on HIDA scan Post-op diagnosis: Leak from the cystic duct stump Surgery: ERCP with sphincterotomy and placement of 10 Greek 5 cm stent Medications: Versed 4mg Fentanyl 100mcg IV push Tissue removed: None Procedure: After informed consent obtained from patient, the throat was sprayed with Hurricane and conscious sedation was achieved. The ERCP endoscope was then inserted into the esophagus blindly and advanced into the stomach. The duodenum was entered and the ampulla was identified. Using the triple-lumen sphincterotomy catheter the common bile duct was freely cannulated. A cholangiogram was obtained. The common bile duct and intrahepatic ducts did not appear dilated. A good sized sphincterotomy was then performed using the endocut mode. The catheter was removed over the guidewire before a 9-12 mm balloon catheter was inserted. The balloon was inflated to 12 mm in the proximal common bile duct and pulled down the duct. In the standard fashion a 10 Greek 5 cm stent was then placed in the common bile duct. The pancreatic duct was intentionally not cannulated. Patient tolerated procedure well. Findings Common bile duct: Contrast leak from the cystic duct stump into the MARIAELENA drains Intrahepatic ducts: Normal Pancreatic duct: Not cannulated Plan: Repeat ERCP with stent removal in 4-6 weeks. OPERATION: .
[2017-04-06] MEDS: HYDROMORPHONE HCL INJ/PF 2 MG/ML AMPULE IV PRN ×5 (00:54→23:26)
[2017-04-06] MEDS: AMPICILLIN SODIUM/SULBACTAM NA 3 GM in NORMAL SALINE 100 ML IV SCH ×3 (01:01→17:10)
[2017-04-06] MEDS: RINGERS SOLUTION,LACTATED 1,000 ML IV PRN (01:02)
--- NOTE | 2017-04-06 02:28 | RADIOLOGY REPORT (SQ) ---
EXAM DESCRIPTION: CHOLANGIOGRAM OPERATIVE COMPLETED DATE/TIME: 04/05/2017 7:27 pm REASON FOR STUDY: ERCP COMPARISON: None. FLUOROSCOPY TIME: 2.1 minutes. 6 images. 6 cc Isovue-[id number]. TECHNIQUE: Cinegraphic images were obtained from an intraoperative cholangiogram. LIMITATIONS: None. FINDINGS: Portable C-arm radiographs obtained and interpreted by the performing clinician at time of examination to facilitate surgical outcome. IMPRESSION: As above. COMMENT: Quality ID [id number]: Final reports for procedures using fluoroscopy that document radiation exp osure indices, or exposure time and number of fluorographic images (if radiation exposure indices are not available) TECHNICAL DOCUMENTATION: JOB ID: [id number] [employer]- All Rights Reserved
[2017-04-06] MEDS: DOXAZOSIN MESYLATE 2 MG TABLET PO SCH (09:17)
[2017-04-06] MEDS: OXYCODONE-ACETAMINOPHEN 5-325 MG TABLET PO PRN ×2 (09:36→16:41)
--- NOTE | 2017-04-06 13:49 | PDOC PROGRESS REPORT ---
Subjective Progress Note for:: 04/06/17 Subjective:: Feels better. Minimal abdominal pain. Hungry. Physical Exam Vital Signs: Temp Pulse Resp BP Pulse Ox 98.7 F 88 23 H 120/77 96 04/06/17 12:46 04/06/17 12:46 04/05/17 23:17 04/06/17 12:46 04/06/17 12:46 Intake & Output 04/05/17 04/06/17 04/07/17 06:59 06:59 06:59 Intake Total 4618 3859 0 Output Total 4080 4835 1000 Balance 538 -076 -1000 Weight 72.8 kg 65.7 kg General appearance: PRESENT: no acute distress, cooperative Respiratory exam: PRESENT: clear to auscultation anne Cardiovascular exam: PRESENT: RRR GI/Abdominal exam: PRESENT: other - Soft, nondistended, minimal right upper quadrant abdominal tenderness with no peritoneal signs. Drain output is bilious however. Results Laboratory Results: 04/05/17 09:59 04/05/17 09:59 Impressions: Abdomen Ultrasound 04/02/17 06:29 IMPRESSION: Cholelithiasis includes a non mobile gallbladder neck stone, gallbladder wall thickening, positive sonographic Boston's test, and 0.8 cm diameter common duct dilation. Differential diagnosis includes acute cholecystitis and biliary colic. Hepatobiliary Scan Nuclear Medicine 04/04/17 00:00 IMPRESSION: Normal clearance of agent from the liver. Hepatobiliary agent activity in the right upper quadrant drainage catheter tubing related to a small bile leak. No focal accumulation in the gallbladder fossa is identified Cholangiogram 04/05/17 00:00 IMPRESSION: As above. Assessment & Plan - Diagnosis (1) Bile leak, postoperative Is this a current diagnosis for this admission?: YesPlan: Controlled bile leak. Will start patient on clear liquids. DC his Sarkar catheter. Get him up out of bed walking.
[2017-04-07] MEDS: AMPICILLIN SODIUM/SULBACTAM NA 3 GM in NORMAL SALINE 100 ML IV SCH ×3 (02:35→17:02)
[2017-04-07] MEDS: OXYCODONE-ACETAMINOPHEN 5-325 MG TABLET PO PRN ×4 (02:36→22:58)
[2017-04-07] MEDS: HYDROMORPHONE HCL INJ/PF 2 MG/ML AMPULE IV PRN ×4 (04:10→21:02)
[2017-04-07] MEDS: DOXAZOSIN MESYLATE 2 MG TABLET PO SCH (10:00)
--- NOTE | 2017-04-07 10:58 | PROGRESS NOTE E ---
Progress Note NAME: CHRIS TIRADO : 1985 AGE: 31Y DATE: 04/07/2017 ROOM: 316 SUBJECTIVE: Patient just complains of mild right upper quadrant pains. He tolerated his soft diet this morning, though did not finish all of his food. He is getting out of bed. OBJECTIVE: His abdomen is soft with mild tenderness in the right upper quadrant. One of the drains is still draining about 150 mL for the past 24 hours. LABORATORY DATA: His white count is normal the past 2 days. His LFT's still are almost normal. PLAN: We will continue with monitoring his drainage from the drain site that goes to the infrahepatic area. Hopefully the drains have decreased and patient may be discharged in the next 48-72 hours on p.o. antibiotics. DICTATING PHYSICIAN: REYNA KIMBROUGH M.D. [id number] PHY#: [id number] ID: [id number] JOB#: [id number] ACCT: [id number] cc: >
[2017-04-08] MEDS: AMPICILLIN SODIUM/SULBACTAM NA 3 GM in NORMAL SALINE 100 ML IV SCH ×2 (01:22→09:57)
[2017-04-08] MEDS: HYDROMORPHONE HCL INJ/PF 2 MG/ML AMPULE IV PRN ×2 (01:23→05:26)
[2017-04-08] MEDS: OXYCODONE-ACETAMINOPHEN 5-325 MG TABLET PO PRN ×3 (04:21→13:31)
[2017-04-08] MEDS ORDERED: HYDROMORPHONE HCL INJ/PF 2 MG/ML AMPULE IV PRN (07:57)
[2017-04-08] MEDS: DOXAZOSIN MESYLATE 2 MG TABLET PO SCH (08:05)
[2017-04-08] MEDS ORDERED: DOCUSATE SODIUM 100 MG CAPSULE PO PRN (11:37)
--- NOTE | 2017-04-08 11:40 | PDOC PROGRESS REPORT ---
Subjective Progress Note for:: 04/08/17 Subjective:: Patient is postoperative day 5 getting about tolerating a diet, still taking IV pain medicine; drain still putting out Physical Exam Vital Signs: Temp Pulse Resp BP Pulse Ox 98.0 F 66 19 120/73 96 04/08/17 07:27 04/08/17 07:27 04/08/17 07:27 04/08/17 07:27 04/08/17 07:27 Intake & Output 04/07/17 04/08/17 04/09/17 06:59 06:59 06:59 Intake Total 600 1314 Output Total 4060 2210 Balance -3460 -896 Weight 63.7 kg 63.5 kg General appearance: PRESENT: no acute distress GI/Abdominal exam: PRESENT: other - Abdomen examined. Operative incisions healing satisfactorily. All dressings removed Medial drain putting out bile; lateral drain has essentially put out no bile and only serous fluid Results Laboratory Results: 04/05/17 09:59 04/05/17 09:59 Impressions: Abdomen Ultrasound 04/02/17 06:29 IMPRESSION: Cholelithiasis includes a non mobile gallbladder neck stone, gallbladder wall thickening, positive sonographic Boston's test, and 0.8 cm diameter common duct dilation. Differential diagnosis includes acute cholecystitis and biliary colic. Hepatobiliary Scan Nuclear Medicine 04/04/17 00:00 IMPRESSION: Normal clearance of agent from the liver. Hepatobiliary agent activity in the right upper quadrant drainage catheter tubing related to a small bile leak. No focal accumulation in the gallbladder fossa is identified Cholangiogram 04/05/17 00:00 IMPRESSION: As above. Assessment & Plan - Diagnosis (1) Bile leak, postoperative Is this a current diagnosis for this admission?: YesPlan: Patient is now 5 days status post reexploration, washout, drain placement for bile leak, doing well, with sepsis resolved, tolerating a diet Recommendations: 1. Will Hep-Lock IV, discontinue intravenous antibiotics 2. Will keep patient drain care; allow him to take a shower; discouraged use of IV narcotics 3. Dissipate discharge home later today.
[2017-04-08 13:37] VITALS: BP 120/73
--- NOTE | 2017-04-08 14:03 | DISCHARGE SUMMARY E ---
Discharge Summary NAME: CHRIS TIRADO : 1985 AGE: 31Y ADMITTED: 04/04/2017 DISCHARGED: 04/08/2017 REASON FOR ADMISSION: Acute abdominal pain. SUMMARY OF HOSPITALIZATION: The patient is a 31-year-old who presents to the emergency department complaining of acute onset of abdominal pain. The patient was evaluated in the emergency department and found to have evidence of cholecystitis and cholelithiasis. The patient was admitted to the surgicalist service, kept n.p.o. on IV fluids and taken to the operating room where the patient underwent laparoscopic cholecystectomy. Findings were significant for acute cholecystitis with cholelithiasis. The first postoperative day, the patient developed acute onset abdominal pain and urinary retention. Sarkar catheter was inserted, fluid resuscitation initiated, but the patient continued to have abdominal pain. The patient was taken back to the operating room by Dr. Claros on 04/03/2017 where the patient was found to have mild peritonitis secondary to bile leak, presumably from the gallbladder fossa. The patient underwent laparoscopic peritoneal wash out and drain placement x2. The exact anatomic location of the bile leak was somewhat elusive. Postoperatively, the patient clinically improved. The patient had a hepatobiliary scan the next day which showed small bile leak again, no other pathology seen but the exact etiology unclear. The patient subsequently had an ERCP by Chago Tadeo MD, channeling machine operator who performed ERCP, cholangiography and sphincterotomy with a 10-Cymraes 5 cm stent. The patient was found to have contrast leaking from what appeared to be the cystic duct stump. Thereafter, the patient continued to do well, had decrease in bile output, but persisting bile coming from the medially placed drain. This drain ended in the hepatic fossa. The patient's laboratory profile improved. He had no evidence of sepsis thereafter and by the fifth postoperative day from the wash out and drain placement procedure, the patient was ready for discharge home. FINAL DIAGNOSES: 1. Status post laparoscopic cholecystectomy for acute cholecystitis and cholelithiasis, status post laparoscopic cholecystectomy by Dr. Marroquin. 2. Status post laparoscopic wash out peritoneal cavity and drain placement by Dr. Claros. 3. Status post ERCP, sphincterotomy, stent placement by Chago Tadeo MD. DISPOSITION: The patient will be discharged home to the care of his family. Follow up with Dr. Claros in approximately 1 week for management of the drains. The patient will take Percocet p.r.n. pain as well as Colace b.i.d. The patient is contact the [facility] in the interim if any problems develop. DICTATING PHYSICIAN: JENNIFER CLAROS M.D. [id number] PHY#: [id number] ID: [id number] JOB#: [id number] ACCT: [id number] cc:JENNIFER CLAROS M.D. E. . [facility], [facility]
== END 2017-04-08 14:13 | disposition home or self-care (01) | DRG 417 ==
LOC: ER 03:20 → INTOOBSV 08:00 → EH 08:00 → UNDOADMIN 08:02 → 4S 11:08 → EH 11:08 → UNDODISOB 04-03 14:57 → ICU 04-03 22:38 → OBSVTOIN 04-04 09:00 → 3W 04-05 19:34
PROVIDERS: ADMIT Surgery; ATTEND Surgery
PROC: 0FT44ZZ Resection of Gallbladder, Percutaneous Endoscopic Approach (ICD-10-PCS; principal; 2017-04-02 12:45)
PROC: 3E1M38Z Irrigation of Peritoneal Cavity using Irrigating Substance, Percutaneous Approach (ICD-10-PCS; 2017-04-03)
PROC: 0F9140Z Drainage of Right Lobe Liver with Drainage Device, Percutaneous Endoscopic Approach (ICD-10-PCS; 2017-04-03)
PROC: 0F9440Z Drainage of Gallbladder with Drainage Device, Percutaneous Endoscopic Approach (ICD-10-PCS; 2017-04-03)
PROC: 0F798DZ Dilation of Common Bile Duct with Intraluminal Device, Via Natural or Artificial Opening Endoscopic (ICD-10-PCS; 2017-04-05)
PROC: BF13YZZ Fluoroscopy of Gallbladder and Bile Ducts using Other Contrast (ICD-10-PCS; 2017-04-05)
DX: K80.00 Calculus of gallbladder with acute cholecystitis without obstruction (principal); K65.3 Choleperitonitis; A41.9 Sepsis, unspecified organism; K91.89 Other postprocedural complications and disorders of digestive system; R33.9 Retention of urine, unspecified; K83.8 Other specified diseases of biliary tract; F17.210 Nicotine dependence, cigarettes, uncomplicated; Y83.6 Removal of other organ (partial) (total) as the cause of abnormal reaction of the patient, or of later complication, without mention of misadventure at the time of the procedure; Y92.230 Patient room in hospital as the place of occurrence of the external cause
CPT/HCPCS: 36415; 43262; 43274; 74300; 76705; 78226; 790; 80048; 80053; 80076; 81001; 83690; 83735; 84100; 85025; 87040; 87070; 87075; 87205; 88304; 99285; A6266; A9537; C2617; J0131; J0171; J0295; J0330; J1100; J1170; J1335; J1610; J1741; J2250; J2310; J2405; J2704; J2765; J3010; J3490; J7030; J7120; Q9969

== ENCOUNTER 2020-08-14 12:06 | Day surgery (SDC) | payer BC ==
[~2020-08-14 12:06] MED LIST: DEXAMETHASONE SOD PHOSPHATE INJ 4 MG/1 ML VIAL ONE; FENTANYL CITRATE INJ/PF 100 MCG/2 ML AMPUL ONE; LACTATED RINGERS 1000 ML IV PRN; LIDOCAINE 0.5% INJ-PF (5 MG/ML) 50 ML SDV SUBCUT PRN; MIDAZOLAM 2 MG/2 ML INJ ONE; ONDANSETRON HCL INJ/PF 4 MG/2 ML SDV ONE; PROPOFOL INJ 200 MG/20 ML VIAL IV ONE; SUCCINYLCHOLINE CHLORIDE INJ 200 MG/10 ML VIAL ONE
[2020-08-14] MEDS ORDERED: MIDAZOLAM 2 MG/2 ML INJ ONE (13:23)
[2020-08-14] MEDS ORDERED: MIDAZOLAM 2 MG/2 ML INJ IV ONE (13:30)
[2020-08-14] MEDS ORDERED: DIPHENHYDRAMINE HCL 50 MG/ML VIAL IV PRN (14:16)
[2020-08-14] MEDS ORDERED: ONDANSETRON HCL INJ/PF 4 MG/2 ML SDV IV PRN (14:16)
[2020-08-14] MEDS ORDERED: FENTANYL CITRATE INJ/PF 100 MCG/2 ML AMPUL IV PRN ×3 (14:16)
[2020-08-14] MEDS ORDERED: MEPERIDINE HCL/PF INJ 25 MG/1 ML DISP.SYRIN IV PRN (14:16)
[2020-08-14] MEDS ORDERED: PROMETHAZINE HCL INJ 25 MG/1 ML VIAL IV PRN ×2 (14:16)
[2020-08-14] MEDS ORDERED: MORPHINE SULFATE 10 MG/ML INJ IV PRN (14:16)
[2020-08-14] MEDS ORDERED: EPINEPHRINE INJ 1 MG/10 ML DISP.SYRIN ONE (14:54)
[2020-08-14] MEDS ORDERED: EPINEPHRINE INJ/PF 1 MG/1 ML AMPULE ONE (14:54)
--- NOTE | 2020-08-14 15:20 | Operative Report ---
Operative Report DATE OF SURGERY: 08/14/20 Operative Report: Pre-op diagnosis: History of biliary leak with previous placement of biliary stent. Post-op diagnosis: 1. Common bile duct stent-removed 2. Common bile duct sludge Surgery: ERCP with old stent removal and balloon sludge extraction Medications: As per anesthesia Tissue removed: None Procedure: After informed consent obtained from patient, patient was placed under general anesthesia. The ERCP endoscope was then inserted into the esophagus blindly and advanced into the stomach. The duodenum was entered and the ampulla was identified. A previously placed biliary stent was identified at the ampulla. This was grasped with the polypectomy snare and pulled out of the patient through the scope. The balloon catheter was then inserted into the common bile duct and a cholangiogram was obtained. No filling defect was identified. The balloon was inflated up to 12 mm and pulled down the bile duct twice. Moderate amount of sludge was extracted. A balloon occlusion cholangiogram was normal. Patient tolerated procedure well. Findings Common bile duct: Normal size with sludge extracted Intrahepatic ducts: Normal Pancreatic duct: Not cannulated Plan: Follow-up as needed OPERATION: .
--- NOTE | 2020-08-14 15:53 | RADIOLOGY REPORT (SQ) ---
EXAM DESCRIPTION: ENDO CATH/BILIARY DUCT IMAGES COMPLETED DATE/TIME: 08/14/2020 3:42 pm REASON FOR STUDY: ERCP ASSISTED USING FLUORO K83.8 OTHER SPECIFIED DISEASES OF BILIARY TRACT COMPARISON: None. FLUOROSCOPY TIME: 1.3 minutes Spot images saved to PACS. TECHNIQUE: Intra-operative images acquired during surgical procedure to evaluate progress. NUMBER OF IMAGES: 4 LIMITATIONS: None. FINDINGS: Fluoroscopy was provided for intraoperative procedure. Please refer to the operative repo rt for further discussion. IMPRESSION: IMAGE(S) OBTAINED DURING PROCEDURE. COMMENT: Quality ID [id number]: Final reports for procedures using fluoroscopy that document radiation exp osure indices, or exposure time and number of fluorographic images (if radiation exposure indices are not available) Please consult full operative report of the attending physician for description of the procedure. TECHNICAL DOCUMENTATION: JOB ID: [id number] 2010 [employer]- All Rights Reserved Reading location - IP/workstation name: [email or web address]
--- NOTE | 2020-08-14 15:53 | RADIOLOGY REPORT (SQ) ---
EXAM DESCRIPTION: NO CHG FLUORO COMPLETE DATE/TIME: 08/14/2020 3:42 pm REASON FOR STUDY: ERCP ASSISTED USING FLUORO K83.8 OTHER SPECIFIED DISEASES OF BILIARY TRACT FINDINGS: Please see combined report for performance of procedure and radiologic supervision and int erpretation. IMPRESSION: Please see combined report for performance of procedure and radiologic supervision and i nterpretation. Reading location - IP/workstation name: [email or web address]
[2020-08-14 17:16] VITALS: BP 140/95
== END 2020-08-14 17:15 | disposition home or self-care (01) ==
LOC: END 12:06 → OROUT 17:15
PROVIDERS: ATTEND Internal Medicine Gastroenterology
DX: K83.8 Other specified diseases of biliary tract (principal); K58.0 Irritable bowel syndrome with diarrhea; Z03.818 Encounter for observation for suspected exposure to other biological agents ruled out; Z90.49 Acquired absence of other specified parts of digestive tract; Z79.899 Other long term (current) drug therapy; F90.9 Attention-deficit hyperactivity disorder, unspecified type; F64.9 Gender identity disorder, unspecified; F17.210 Nicotine dependence, cigarettes, uncomplicated
CPT/HCPCS: 74328; 43275; 43264; U0003; J2250; J3010; J2704; C9803; 732; 87635; J0171; J0330; J1100; J2405; Q9967

== ENCOUNTER 2020-10-14 13:47 | Emergency (ER) | payer BC ==
[2020-10-14] MEDS ORDERED: NORMAL SALINE 1000 ML 1,000 ML IV ONE (14:22)
--- NOTE | 2020-10-14 14:26 | ER Document Report ---
ED Medical Screen (RME) - General Chief Complaint: Dizziness Stated Complaint: DIZZY CHEST PAIN NECK HEADACHE Time Seen by Provider: 10/14/20 14:14 Mode of Arrival: Wheelchair Information source: Patient Notes: Patient is a 35-year-old male comes emergency room with a 3-day onset of increasing symptoms. Patient for started with feeling dizzy and lightheaded and felt like his heart was racing. He is also complaining of chest pain and tightness which started today. He also has some neck discomfort. Patient denies any fevers no nausea vomiting or diarrhea. Mild shortness of breath is a lso noted. Patient denies any past medical history. Patient denies any sick contacts. Patient does smoke cigarettes. Physical examination: Patient is a thin appearing 35-year-old male in no appare nt distress on examination today. Cardiac: Patient has a rate of 119 bpm on monitor. No murmurs were auscultated on exam. Blood pressure is 154/110. Lungs: Bilateral breath sounds breath sounds increased throughout no rhonchi rales or wheeze noted. Cervical spine: Physical examination of patient's neck does not show any signs of meningismus in the sitting position he does appear to have some decreased range of motion in all planes but no rigidity noted. Patient denies any narcotic use. I have greeted and performed a rapid initial assessment of this patient. A comprehensive ED assessment and evaluation of the patient, analysis of test results and completion of the medical decision making process will be conducted by additional ED providers. Dictation of this chart was performed using voice recognition software; therefore, there may be some unintended grammatical errors. TRAVEL OUTSIDE OF THE [place] IN LAST 30 DAYS: No - Related Data Allergies/Adverse Reactions: No Known Allergies Allergy (Verified 10/14/20 14:13) Past Medical History - Past Medical History Cardiac Medical History: Denies: Hx Coronary Artery Disease, Hx Heart Attack, Hx Hypertension Pulmonary Medical History: Denies: Hx Asthma, Hx Bronchitis, Hx COPD, Hx Pneumonia Neurological Medical History: Denies: Hx Cerebrovascular Accident, Hx Seizures Renal/ Medical History: Denies: Hx Peritoneal Dialysis Musculoskeltal Medical History: Denies Hx Arthritis Past Surgical History: Reports: Hx Orthopedic Surgery - ACL surgery; - Immunizations Hx Diphtheria, Pertussis, Tetanus Vaccination: No Physical Exam - Vital signs Vitals: Temp Pulse Resp BP Pulse Ox 98.3 F 119 H 20 154/101 H 100 10/14/20 13:54 10/14/20 13:54 10/14/20 13:54 10/14/20 13:54 10/14/20 13:54 Course - Vital Signs Vital signs: Temp Pulse Resp BP Pulse Ox 98.3 F 119 H 20 154/101 H 100 10/14/20 13:54 10/14/20 13:54 10/14/20 13:54 10/14/20 13:54 10/14/20 13:54
[2020-10-14 15:19] LABS: ABSOLUTE LYMPHOCYTES (AUTO) 1.7 10^3/uL (0.5-4.7); ABSOLUTE MONOCYTES (AUTO) 0.4 10^3/uL (0.1-1.4); ABSOLUTE NEUT (AUTO) 5.6 10^3/uL (1.7-8.2); BASOPHILS % (AUTO) 0.5 % (0-2); EOSINOPHILS % (AUTO) 0.3 % (0-6); HEMATOCRIT 47.8 % (37.9-51.0); HEMOGLOBIN 16.6 g/dL (13.5-17.0); MEAN CORPUSCULAR HEMOGLOBIN 31.5 pg (27.0-33.4); MEAN CORPUSCULAR HGB CONC 34.8 g/dL (32.0-36.0); MEAN CORPUSCULAR VOLUME 91 fl (80-97); PLATELET COUNT 256 10^3/uL (150-450); RED BLOOD COUNT 5.28 10^6/uL (4.35-5.55); RED CELL DISTRIBUTION WIDTH 13.4 % (11.5-14.0); SEGMENTED NEUTROPHILS % (AUTO) 72.2 % (42-78); TOTAL CELLS COUNTED % (AUTO) 100 %; WHITE BLOOD COUNT 7.7 10^3/uL (4.0-10.5)
--- NOTE | 2020-10-14 15:30 | RADIOLOGY REPORT (SQ) ---
EXAM DESCRIPTION: CHEST SINGLE VIEW IMAGES COMPLETED DATE/TIME: 10/14/2020 3:20 pm REASON FOR STUDY: cp COMPARISON: 05/13/2016 EXAM PARAMETERS: NUMBER OF VIEWS: One view. TECHNIQUE: Single frontal radiographic view of the chest acquired. RADIATION DOSE: NA LIMITATIONS: None. FINDINGS: LUNGS AND PLEURA: No opacities, masses or pneumothorax. No pleural effusion. MEDIASTINUM AND HILAR STRUCTURES: No masses. Contour normal. HEART AND VASCULAR STRUCTURES: Heart normal in size. Normal vasculature. BONES: No acute findings. HARDWARE: None in the chest. OTHER: No other significant finding. IMPRESSION: NO ACUTE RADIOGRAPHIC FINDING IN THE CHEST. TECHNICAL DOCUMENTATION: JOB ID: [id number] 2010 [employer]- All Rights Reserved Reading location - IP/workstation name: [email or web address]
[2020-10-14 15:40] LABS: URINE BARBITURATES SCREEN NEGATIVE; URINE BENZODIAZEPINES SCREEN NEGATIVE; URINE COCAINE SCREEN NEGATIVE; URINE MARIJUANA (THC) SCREEN NEGATIVE; URINE METHADONE SCREEN NEGATIVE; URINE PHENCYCLIDINE SCREEN NEGATIVE
[2020-10-14 15:41] LABS: URINE AMPHETAMINES SCREEN UNCONFIRMED POSITIVE
[2020-10-14 15:45] LABS: ALBUMIN 4.6 g/dL (3.5-5.0); ALKALINE PHOSPHATASE 95 U/L (38-126); ANION GAP 8 (5-19); ASPARTATE AMINO TRANSFERASE 53 U/L (17-59); BILIRUBIN,DIRECT 0.1 mg/dL (0.0-0.4); BILIRUBIN,TOTAL 0.8 mg/dL (0.2-1.3); BLOOD UREA NITROGEN 6 mg/dL (7-20); CALCIUM 9.7 mg/dL (8.4-10.2); CARBON DIOXIDE 32 mmol/L (22-30); CHLORIDE 96 mmol/L (98-107); GLUCOSE 116 mg/dL (75-110); POTASSIUM 3.4 mmol/L (3.6-5.0); TOTAL PROTEIN 7.7 g/dL (6.3-8.2)
[2020-10-14 16:44] LABS: APPEARANCE,URINE CLEAR; BILIRUBIN,URINE NEGATIVE (NEGATIVE); COLOR,URINE STRAW; GLUCOSE, URINE NEGATIVE (NEGATIVE); KETONES,URINE NEGATIVE (NEGATIVE); NITRITE,URINE NEGATIVE (NEGATIVE); PROTEIN,URINE NEGATIVE (NEGATIVE); URINE SPECIFIC GRAVITY 1.008; UROBILINOGEN,URINE NEGATIVE mg/dL (<2.0)
[2020-10-14 17:02] LABS: LEUKOCYTE ESTERASE,URINE MODERATE (NEGATIVE)
--- NOTE | 2020-10-14 17:08 | ER Document Report ---
ED General - General Chief Complaint: Dizziness Stated Complaint: DIZZY CHEST PAIN NECK HEADACHE Time Seen by Provider: 10/14/20 14:14 Mode of Arrival: Wheelchair TRAVEL OUTSIDE OF THE [place] IN LAST 30 DAYS: No - HPI Notes: Patient is a 35-year-old male who presents to the emergency department for evaluation of dizziness, chest pain, neck stiffness. Has had neck stiffness and headaches over the last several days. He said no fevers or chills. No visual changes. No difficulty seeing, speaking, swallowing. He is moving his arms and legs without difficulty. 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 He denies any vertiginous symptoms. He did feel slightly short of breath. He denies any associated nausea or diaphoresis. He states he sat down but his symptoms persisted. He really does not note any improvement in his symptoms since arrival. He had a similar episode in the past but it was milder and much more limited. - Related Data Allergies/Adverse Reactions: No Known Allergies Allergy (Verified 10/14/20 14:13) Home Medications: Adderall 30 mg twice daily, testosterone weekly Past Medical History - General Information source: Patient - Social History Smoking Status: Current Every Day Smoker Chew tobacco use (# tins/day): No Frequency of alcohol use: Heavy - Drinks tequila daily Drug Abuse: None Family History: Reviewed & Not Pertinent - Past Medical History Cardiac Medical History: Denies: Hx Coronary Artery Disease, Hx Heart Attack, Hx Hypertension Pulmonary Medical History: Denies: Hx Asthma, Hx Bronchitis, Hx COPD, Hx Pneumonia Neurological Medical History: Denies: Hx Cerebrovascular Accident, Hx Seizures Renal/ Medical History: Denies: Hx Peritoneal Dialysis Musculoskeletal Medical History: Denies Hx Arthritis Psychiatric Medical History: Reports: Hx Attention Deficit Hyperactivity Disorder Past Surgical History: Reports: Hx Cholecystectomy, Hx Orthopedic Surgery - ACL surgery;, Other - Bilateral mastectomy for transitioning - Immunizations Hx Diphtheria, Pertussis, Tetanus Vaccination: No Review of Systems - Review of Systems Constitutional: No symptoms reported EENT: No symptoms reported Cardiovascular: See HPI Respiratory: See HPI Gastrointestinal: No symptoms reported Genitourinary: No symptoms reported Musculoskeletal: See HPI Skin: No symptoms reported Neurological/Psychological: No symptoms reported Physical Exam - Vital signs Vitals: Temp Pulse Resp BP Pulse Ox 98.3 F 119 H 20 154/101 H 100 10/14/20 13:54 10/14/20 13:54 10/14/20 13:54 10/14/20 13:54 10/14/20 13:54 - Notes Notes: Vital signs reviewed, please refer to chart. Head is normocephalic, atraumatic. Pupils equal round, reactive to light. Neck is supple without meningismus. Heart is regular rate and rhythm. Lungs are clear to auscultation bilaterally. Abdomen is soft, nontender, normoactive bowel sounds throughout. Extremities without cyanosis, clubbing. Posterior calves are nontender. Peripheral pulses are equal. Skin is warm and dry. Patient is awake, alert, neurological exam is nonfocal. Patient is awake, alert, oriented x3. Cranial nerves II - XII are grossly intact without focal neurological deficits. Strength is plus 5 out of 5 bilateral upper and lower extremities. Sensation is intact. Reflexes symmetrical. Intact [id number]-jaax-lcnryu, rapid alternating movements, nlfi-af-lges. Course - Re-evaluation Re-evalutation: 10/14/20 17:09 Patient presents emergency department for evaluation. On arrival he is tachycardic. He complains of neck stiffness and pain, but also chest pain or shortness of breath. His heart rate has been persistently elevated. He is on exogenous hormones and he smokes, and he had a significant surgery in June of this year. I am concerned about the possibility of a pulmonary embolus in this patient. Laboratory investigations were ordered, CTA ordered as well. He is given IV fluids, he is currently stable. 10/14/20 19:02 CT angiogram fails to reveal any acute abnormalities. I do not have a clear etiology for this patient's symptoms at this time. He has a normal CT. His lab work shows no significant abnormality at this time. He is given IV fluids and his heart rate has improved somewhat. He is strongly encouraged to quit drinki ng alcohol. He is to follow-up closely with his primary care provider, return to the ED with worsening or new concerning symptoms of any sort. 10/14/20 19:29 Please note that I did discuss his Adderall dose with the patient. The patient is on a significant dose of Adderall, actually higher than normally recommended. I explained that this could be contributing to his tachycardia as well as his h igh blood pressure. He voiced understanding and will discuss this with his provider. - Vital Signs Vital signs: Temp Pulse Resp BP Pulse Ox 98.2 F 90 16 155/100 H 100 10/14/20 19:22 10/14/20 19:22 10/14/20 19:22 10/14/20 19:22 10/14/20 19:22 - Laboratory Results Result Diagrams: 10/14/20 14:55 10/14/20 14:55 Laboratory Results Interpreted: 10/14/20 10/14/20 14:45 14:55 Sodium 136.4 L Potassium 3.4 L Chloride 96 L Carbon Dioxide 32 H BUN 6 L Glucose 116 H Ur Leukocyte Esterase MODERATE H Critical Laboratory Results Reviewed: No Critical Results - Radiology Results Radiology Results Interpreted: 10/14/20 19:02 Chest X-Ray 10/14/20 14:20 IMPRESSION: NO ACUTE RADIOGRAPHIC FINDING IN THE CHEST. Chest/Abdomen CTA 10/14/20 16:58 IMPRESSION: Mild motion artifact. No visualized pulmonary embolism or acute intrathoracic abnormality. Critical Radiology Results Reviewed: No Critical Results - EKG Interpretation by Me Additional EKG results interpreted by me: 10/14/20 17:10 Sinus tachycardia with a rate of 120 bpm. Normal axis and intervals. No acute ST changes concerning for ischemia or infarction. 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 Your heart rate has improved. Please consider quitting drinking alcohol, or at the very least cutting down. Follow-up closely with your primary care provider. If you develop worsening or new concerning symptoms of any sort, please return immediately to the emergency department for evaluation.
--- NOTE | 2020-10-14 18:02 | EKG REPORT ---
SEVERITY:- ABNORMAL ECG - SINUS TACHYCARDIA LISA, CONSIDER BIATRIAL ABNORMALITIES LAD, CONSIDER LEFT ANTERIOR FASCICULAR BLOCK : Confirmed by: Jarred Rubin MD 14-Oct-2020 18:01:46
--- NOTE | 2020-10-14 18:41 | RADIOLOGY REPORT (SQ) ---
EXAM DESCRIPTION: CTA CHEST IMAGES COMPLETED DATE/TIME: 10/14/2020 3:27 pm REASON FOR STUDY: chest pain, tachycardia, eval for PE COMPARISON: Single-view chest same date. TECHNIQUE: CT scan of the chest performed using helical scanning technique with dynamic intravenous contrast injection. Images reviewed with lung, soft tissue and bone windows. Reconstructed coronal and sagittal MPR images reviewed. Additional 3 dimensional post-processing performed to develop Maximal Intensity Projection images (AK P). All images stored on PACS. All CT scanners at this facility use dose modulation, iterative reconstruction, and/or weight based d osing when appropriate to reduce radiation dose to as low as reasonably achievable (ALARA). [facility]: Dose Right [facility]: CareDose [facility]: Dose Right [facility]: Teradose 4D [facility]: [employer] CONTRAST TYPE AND DOSE: contrast/concentration: Isovue 350.00 mmol/ml; Total Contrast Delivered: 50. 0 ml; Total Saline Delivered: 36.7 ml Contrast bolus adequate for pulmonary arteries and aorta. RENAL FUNCTION: Creatinine 0.86. RADIATION DOSE: CT Rad equipment meets quality standard of care and radiation dose reduction techniq ues were employed. CTDIvol: 9.9 - 14.4 mGy. DLP: 533 mGy-cm. . LIMITATIONS: Mild motion artifact. FINDINGS: LUNGS AND PLEURA: No consolidation. No pleural effusion or thickening. No pneumothorax. No mass lesion. AORTA AND GREAT VESSELS: No aneurysm. No dissection. HEART: No pericardial effusion. No significant coronary artery calcifications. PULMONARY ARTERIES: No visualized pulmonary embolism. Some of the distal branches are not optimally assessed due to motion artifact, particularly in the left lower lung. HILAR AND MEDIASTINAL STRUCTURES: No identified masses or abnormal nodes. HARDWARE: None in the chest. UPPER ABDOMEN: No significant findings. Limited exam. THYROID AND OTHER SOFT TISSUES: No masses. No adenopathy. BONES: No acute or significant finding. 3D MIPS: Confirm above findings. OTHER: No other significant finding. IMPRESSION: Mild motion artifact. No visualized pulmonary embolism or acute intrathoracic abnormali ty. COMMENT: Quality ID # [id number]: Final reports with documentation of one or more dose reduction techniques (e.g., Automated exposure control, adjustment of the mA and/or kV according to patient size, use of iterative reconstruction technique) TECHNICAL DOCUMENTATION: JOB ID: [id number] [employer]- All Rights Reserved Reading location - IP/workstation name: [email or web address]
[2020-10-14 19:25] VITALS: BP 155/100
== END 2020-10-14 19:29 | disposition home or self-care (01) ==
LOC: ER 13:47
DX: R42 Dizziness and giddiness (principal); R07.89 Other chest pain; M43.6 Torticollis; R51.9 Headache, unspecified; R00.0 Tachycardia, unspecified; M54.2 Cervicalgia; F17.210 Nicotine dependence, cigarettes, uncomplicated; F90.9 Attention-deficit hyperactivity disorder, unspecified type; Z79.899 Other long term (current) drug therapy; Z98.890 Other specified postprocedural states
CPT/HCPCS: 93005; 99285; 96360; 36415; 87086; 83605; 85025; 87088; 80053; 81001; 84484; 87186; 80307; 71045; 71275; 93010; J7030